=== PATIENT | female | born 1965 | race African-American/Black ===

== ENCOUNTER 2021-06-10 19:44 | Emergency (ER) | payer BC ==
[~2021-06-10] VITALS: Ht 167.6 cm; Wt 111.1 kg
[2021-06-10 19:50] VITALS: BP 152/69
== END 2021-06-10 20:46 | disposition home or self-care (01) ==
LOC: ER 19:44
DX: S92.412A Displaced fracture of proximal phalanx of left great toe, initial encounter for closed fracture (principal); I10 Essential (primary) hypertension; E11.40 Type 2 diabetes mellitus with diabetic neuropathy, unspecified; Z90.49 Acquired absence of other specified parts of digestive tract; Z98.51 Tubal ligation status; Z98.890 Other specified postprocedural states; W18.30XA Fall on same level, unspecified, initial encounter; Y93.89 Activity, other specified; Y92.89 Other specified places as the place of occurrence of the external cause; Y99.9 Unspecified external cause status